=== PATIENT | male | born 1985 | race Two or more races ===

== ENCOUNTER 2024-02-11 11:43 | Emergency (ER) | payer MEDICAID, SELFPAY ==
[2024-02-11 11:44] VITALS: BMI 35.5
[2024-02-11 11:52] VITALS: BP 186/98; PULSE 88; RESP 19; TEMP 37; O2SAT 98
--- NOTE | 2024-02-11 12:28 | XR_ITS ---
Examination: CT abdomen with intravenous contrast CT pelvis with intravenous contrast 2-D coronal reconstructions 2-D sagittal reconstructions Date and time of exam:February 11, 2024 1428 hours INDICATIONS: Onset right lower abdominal pain beginning 2:00 AM. CTDI: vol (mGy) 9.75 DLP: (mGycm) 604 Technique: Multiple axial sections of the abdomen and pelvis have been obtained. 64 slice high-resolution scanner used. 3 mm axial sections have been obtained, post intravenous injection 60 cc [id number] 2-D sagittal, coronal reconstructions obtained. Low dose protocols were performed. One or more of the following dose reduction techniques were used; automated exposure control, adjustment of the mA and/or KV according to patient size, use of iterative reconstruction technique. Findings: No focal liver or splenic lesions No gallstones No pancreatic or adrenal mass Minimal right hydronephrosis secondary to 2 mm distal right ureteral calculus image 206 Aorta normal size Normal appendix No bowel obstruction No bladder mass or bladder calculi No prostatomegaly Small fat-containing bilateral inguinal hernias Grade 1 anterolisthesis L4 on L5 L5-S1 3 mm central lumbar disc bulge L4-L5 3 mm central lumbar disc bulge extending to the foraminal regions with mild bilateral L4 ganglionic compression IMPRESSION: Minimal right hydronephrosis secondary to 2 mm distal right ureteral calculus Normal appendix
--- NOTE | 2024-02-11 12:28 | EKG_ITS ---
[facility] Test Date: 2024-02-11 Pat Name: PEDRO CHANG Department: Room: - Gender: Male Service Greeter: : 1985 Requested By: Contreras Choi Order Number: [id number] Reading MD: Contreras Choi Measurements Intervals [place] Rate: 62 P: 9 NM: 176 QRS: 48 QRSD: 129 T: 22 QT: 417 QTc: 425 Interpretive Statements SINUS RHYTHM PROBABLE INFERIOR MYOCARDIAL INFARCTION , OF INDETERMINATE AGE [35 ms Q WAVE IN II/aVF] No previous ECG available for comparison /store/S0/[id number].pdf
--- NOTE | 2024-02-11 12:30 | PD.EDABDPN ---
ED Abdominal Pain RME/HPI General Chief Complaint: Abdominal Pain Stated complaint: SENT BY [facility] FOR APPY Time seen by provider: 02/11/24 12:06 Arrival date/time: 02/11/24 11:43 RME / HPI RME / HPI narrative: 38-year-old male patient with no significant medical history, was brought in by family for evaluation regarding right lower quadrant pain. Onset of symptoms since 1 AM this morning, sudden onset of right lower quadrant pain, described as sharp pain, severity moderate. Associated with nausea. Denies any vomiting denies any fever denies any other complaints. Patient went to PCP ultrasound was done and was advised to go to the emergency room for possible appendicitis. Related Data Previous Rx's ?Medication ?Instructions ?Recorded ketorolac 10 mg tablet 10 mg PO Q8H PRN pain 5 days #20 02/11/24 tabs tamsulosin 0.4 mg capsule (Flomax) 0.4 mg PO QDAY #10 caps 02/11/24 Allergies Allergy/AdvReac Type Severity Reaction Status Date / Time Penicillins Allergy Unknown Hives Verified 02/11/24 12:45 Review of Systems Review of Systems Narrative Review of Systems: Review of system reviewed and within normal limits except mentioned in HPI ED Exam Narrative Physical exam: VITAL SIGNS: Reviewed. GENERAL APPEARANCE: Alert and interactive, follows commands, no acute distress, HEAD AND FACE: Non-traumatic. ENT: PERRL, pink conjunctivitis, eyelid no trauma, Mucous membrane moist. NECK: Supple, nontender, no nuchal rigidity. CHEST: No tenderness, no crepitus, no paradoxical movement, no retractions. LUNGS: Clear, well ventilated, symmetric, no rales, no wheezing, no ronchi, no stridor, good breath sounds bilaterally. HEART: Regular rate, regular rhythm, no murmur, no gallops. ABDOMEN: Soft, positive bowel sounds, nondistended, no guarding, right lower quadrant tenderness, no rebound, no masses, RECTAL: Deferred. GENITAL: Deferred. NEUROLOGICAL: Gross motor function intact sensory function intact, Appropriate for age. MUSCULOSKELETAL: low back nontender, full range of motion. EXTREMITIES: Nontender, full range of motion. SKIN: Color pink, dry, no rash, no lacerations, no abrasions, no contusions. LYMPHATICS: Deferred. Course Quality Measures none Orders Category Date Time Status CT Screening NOW Care 02/11/24 12:28 Active EKG (ED ONLY) *Do not use* NOW Care 02/11/24 12:28 Completed NPO NOW Care 02/11/24 12:29 Active Diet NPO (NOW) Diet 02/11/24 12:[address] abdomen pelvis w con Stat Exams 02/11/24 12:28 Completed EKG (ED Only) Stat Exams 02/11/24 12:28 Draft CBC Stat Lab 02/11/24 12:50 Completed Comprehensive Metabolic Panel Stat Lab 02/11/24 12:50 Completed Lipase Stat Lab 02/11/24 12:50 Completed Partial Thromboplastin Time Stat Lab 02/11/24 12:50 Completed Prothrombin Time with INR Stat Lab 02/11/24 12:50 Completed UA, C/S IF [Urinalysis, C/S if Indicated] Stat Lab 02/11/24 14:52 Completed HYDROmorphone INJ [Dilaudid Inj] Med 02/11/24 13:44 Discontinued 1 mg IVP X1 ONE Ketorolac Inj [Toradol Inj] Med 02/11/24 16:33 Discontinued 30 mg IVP X1 ONE Morphine Inj Med 02/11/24 12:33 Discontinued 5 mg IVP X1 ONE Morphine Inj [Morphine Sulf Inj] Med 02/11/24 12:28 Discontinued 5 mg IVP X1 ONE Ondansetron Inj [Zofran Inj] Med 02/11/24 12:28 Discontinued 4 mg IV X1 ONE Piper/Tazo 3.375 gm [Zosyn] Med 02/11/24 13:38 Discontinued 3.375 gm in 50 ml IV X1 Sodium Chloride 0.9% 1000 ml [Ns] 1,000 ml Med 02/11/24 12:29 Discontinued IV 999 mls/hr Vital Signs Vital signs: Vital Signs Temperature 98.6 F 02/11/24 11:52 Pulse Rate 88 02/11/24 11:52 Respiratory Rate 19 02/11/24 11:52 Blood Pressure 186/98 H 02/11/24 11:52 Pulse Oximetry (%) 98 02/11/24 11:52 Oxygen Delivery Method Room Air 02/11/24 11:52 Abdominal Pain MDM MDM Narrative MDM Narrative:: 38-year-old male patient with no significant medical history, was brought in by family for evaluation regarding right lower quadrant pain. Onset of symptoms since 1 AM this morning, sudden onset of right lower quadrant pain, described as sharp pain, severity moderate. Associated with nausea. Denies any vomiting denies any fever denies any other complaints. Patient went to PCP ultrasound was done and was advised to go to the emergency room for possible appendicitis. Laboratory workup is significant for slight leukocytosis and urinalysis showed hematuria with no sign of UTI. CT scan of the abdomen pelvis showed normal appendix and 2 mm distal ureteric stone on the right. results discussed with the family. Patient was given IV fluids, morphine Dilaudid with complete resolution of pain. Patient data External records reviewed:: None Clinical information provided by:: none Social determinants that could affect healthcare access:: none Patient has the following chronic illnesses:: None How is presenting disease/condition affected by chronic disease/condition?: no chronic disease Evaluation data The following diagnostics were reviewed and interpreted by me:: lab results, radiology exam(s) and EKG tracing(s) Lab and/or radiology exams considered but not ordered:: None Interpretation Summary: EKG as interpreted by me showed sinus rhythm, ventricular rate of 62 bpm, No ST segment elevation depression noted. Urinalysis positive for hematuria no UTI, CBC slight leukocytosis. The rest of the labs unremarkable. Medications / Prescriptions Medications or Prescriptions considered but not ordered:: None Medication administrations:: Medication Administration History Discontinued Medications Hydromorphone HCl (Hydromorphone Inj 2 Mg/Ml Vial) 1 mg IVP X1 ONE Stop: 02/11/24 13:45 Last Admin: 02/11/24 13:56 Dose: 1 mg Documented By: BRANT Sodium Chloride (Ns) 1,000 mls @ 999 mls/hr IV .Q1H1M ONE Stop: 02/11/24 13:29 Last Infusion: 02/11/24 14:01 Dose: Infused Documented By: Admin: 02/11/24 12:39 Dose: 999 mls/hr Documented By: Piperacillin/Tazobactam/Dextrose (Zosyn) 3.375 gm in 50 mls @ 100 mls/hr IV X1 ONE Stop: 02/11/24 14:07 Last Infusion: 02/11/24 14:56 Dose: Infused Documented By: Admin: 02/11/24 14:02 Dose: 100 mls/hr Documented By: BRANT Ketorolac Tromethamine (Ketorolac Inj 30 Mg/Ml Vial) 30 mg IVP X1 ONE Stop: 02/11/24 16:34 Morphine Sulfate (Morphine Sulf Inj 4 Mg/Ml Vial) 5 mg IVP X1 ONE Stop: 02/11/24 12:29 Last Admin: 02/11/24 13:45 Dose: Not Given Documented By: BRANT Non-Admin Reason: Cancelled by Provider Morphine Sulfate (Morphine Sulf Inj 10 Mg/Ml Vial) 5 mg IVP X1 ONE Stop: 02/11/24 12:34 Last Admin: 02/11/24 12:38 Dose: 5 mg Documented By: Ondansetron HCl (Ondansetron Inj 2 Mg/Ml Inj 2 Ml) 4 mg IV X1 ONE; Protocol Stop: 02/11/24 12:29 Last Admin: 02/11/24 13:55 Dose: 4 mg Documented By: BRANT IV fluids, Zofran, morphine, Toradol IM, and Zosyn IV. Consultations Consultation(s) initiated? (list below): No Diagnosis Differential diagnosis abdominal pain: abdominal pain, acute appendicitis and other (Ureterolithiasis) Most likely diagnosis given after review of the tests above:: Ureterolithiasis Admission Indicated Admission indicated?: not indicated Admission Request Was there a request for admission?: No Disposition Plan Disposition Plan: Discharge Discharge Attestation Discharge Attestation: The patient and all family members were given an opportunity to ask questions and understood the discharge instructions. Discharge instructions specifically effects, indications for sooner follow up or return to the emergency department, and the expected course of current diagnosis. Patient condition: Stable Discharge Plan Plan Patient Disposition: HOME (Self Care) Disposition Comment: Stable Prescriptions/Referrals Prescriptions/Med Rec: New ketorolac 10 mg tablet 10 mg PO Q8H PRN (Reason: pain) 5 Days Qty: 20 0RF tamsulosin [Flomax] 0.4 mg capsule 0.4 mg PO QDAY Qty: 10 0RF Referrals: No Primary/Family,Physician [Primary Care Provider] - In 1 week Problem List Clinical Impression: Ureterolithiasis Patient/Caregiver Discharge Instructions Discharge Activity: activity as tolerated Education Materials: Understanding Kidney Stones Additional Instructions: Thank you for the opportunity for serving you today. You are stable for discharged . You are advised to: Follow-up with your PCP in 1 to 2 days and asked for referral to urologist Return to ED for worsening of symptoms Increase oral fluids Take medication as prescribed Print Language: [place] Stand Alone Forms: [place] Award Info., Patient Portal Info Letter PA/SPECIAL EFFECTS DESIGNER Supervising Physician PA/SPECIAL EFFECTS DESIGNER Supervising Physician: MD Luciana
[2024-02-11] MEDS: MORPHINE SULF INJ 10 MG/ML VIAL 5 MG IVP (12:38)
[2024-02-11] MEDS: SODIUM CHLORIDE 0.9% 1000 ML 1,000 ML 999 ML IV (12:39)
[2024-02-11 13:02] LABS: Basophils % (Auto) 0 % (0-2.5); Eosinophils % (Auto) 0 % (0-10); Hematocrit 39.9 % (41.0-53.0); Hemoglobin 14.1 g/dL (13.5-16.0); Immature Granulocytes % (Auto) 0 % (0-0); Immature Granulocytes Auto 0.03 Thou/mm3 (0.00-0.00); Lymphocytes # (Auto) 1.2 Thou/mm3 (1.0-4.8); Lymphocytes % (Auto) 10 % (10-50); Mean Corpuscular HGB Conc 35.3 g/dl (31.0-37.0); Mean Corpuscular Hemoglobin 29.7 pg (25.0-35.0); Mean Corpuscular Volume 84 fL (80-100); Monocytes # (Auto) 0.5 Thou/mm3 (0.0-0.8); Monocytes % (Auto) 4 % (0-12); Neutrophils # (Auto) 10.8 Thou/mm3 (1.8-7.7); Neutrophils % (Auto) 86 % (37-80); Nucleated Red Blood Cell % 0 /100 WBC (0); Platelet Count 236 Thou/mm3 (140-440); RDW Standard Deviation 38.8 fL (35.1-43.9); Red Blood Count 4.74 Miln/mm3 (4.50-5.90); White Blood Count 12.5 Thou/mm3 (3.8-10.6)
[2024-02-11 13:20] LABS: Partial Thromboplastin Time 25.9 Seconds (22.0-36.0); Prothrombin Time 11.2 Seconds (9.0-12.2)
--- NOTE | 2024-02-11 13:43 | PC.NURSE ---
PATIENT STATES PAIN 10/10. INFORMED ER PROVIDER AND RECEIVED VERBAL ORDER FOR 1MG HYDROMORPHONE
[2024-02-11] MEDS: ONDANSETRON INJ 2 MG/ML INJ 2 ML 4 MG IV (13:55)
[2024-02-11] MEDS: HYDROmorphone INJ 2 MG/ML VIAL 1 MG IVP (13:56)
[2024-02-11 14:02] VITALS: BP 154/102; PULSE 71; RESP 18; TEMP 36.8; O2SAT 97
[2024-02-11] MEDS: PIPER/TAZO 3.375 GM 3.375 GM/50 ML BAG IV (14:02)
[2024-02-11 14:08] LABS: Alanine Aminotransferase 51 U/L (10-49); Albumin, Serum 4.6 gm/dL (3.5-5.0); Albumin/Globulin Ratio 1.6 (1.2-2.2); Alkaline Phosphatase 163 U/L (46-116); Anion Gap 7 (7-16); Aspartate Amino Transferase 35 U/L (0-34); BUN/Creatinine Ratio 16 Ratio (12-20); Blood Urea Nitrogen 16 mg/dL (9-23); Calcium 9.7 mg/dL (8.3-10.6); Calcium (Corrected) 9.7 mg/dL (8.5-10.1); Carbon Dioxide 25.9 mMol/L (20.0-31.0); Chloride 105 mMol/L (98-107); Estimated Creatinine Clearance 99.9 mL/min (>60); Globulin 2.8 gm/dL (2.3-3.5); Glucose 130 mg/dL (74-106); Lipase 35 U/L (12-53); Osmolality,Calculated 278 (275-295); Potassium 3.9 mMol/L (3.4-5.1); Sodium 138 mMol/L (136-145); Total Protein 7.4 gm/dL (5.7-8.2); eGFR > 60 See Note
[2024-02-11 14:43] LABS: Bilirubin,Total 0.7 mg/dL (0.3-1.2)
[2024-02-11 15:00] LABS: Collection Type, Urine Clean Catch
[2024-02-11 15:08] LABS: Bilirubin,Urine Negative (Negative); Blood,Urine 2+ (Negative); Clarity,Urine Clear (Clear/Hazy); Color,Urine Lt-Yellow (Lt Yel-Yel); Culture Indicated,Urine Not Indicated; Glucose, Urine Negative (Negative); Ketones,Urine Negative (Negative); Leukocyte Esterase,Urine Negative (Negative); Nitrite,Urine Negative (Negative); PH,Urine 7.5 (5.0-7.0); Protein,Urine Negative (Neg - Trace); RBC,Urine 111 /hpf (0-3); Specific Gravity,Urine 1.021 (1.001-1.035); Squamous Epithelial Cell,Urine < 1 /hpf (0-5); Urobilinogen,Urine Negative mg/dL (0.0-1.0); WBC,Urine 1 /hpf (0-5)
[2024-02-11 16:00] VITALS: BP 155/99; PULSE 65; RESP 16; TEMP 36.7; O2SAT 98
[2024-02-11 18:00] VITALS: BP 149/91; PULSE 69; RESP 18; TEMP 37; O2SAT 99
== END 2024-02-11 18:32 | disposition home or self-care (01) ==
PROVIDERS: Nurse Practitioner Family; Emergency Provider Emergency Medicine
DX: N20.1 Calculus of ureter (principal); R94.31 Abnormal electrocardiogram [ECG] [EKG]
CPT/HCPCS: 36415; 74177; 80053; 81001; 83690; 85025; 85610; 85730; 93005; 96365; 96375; 99285; A4649; J2270; J2405; J2543; J3490; J7030; Q9967